=== PATIENT | female | born 1950 | race Caucasian/White ===

== ENCOUNTER 2018-05-22 11:12 | Emergency (ER) | payer MEDICARE, OTHER ==
--- NOTE | 2018-05-22 13:40 | CT ---
CT BRAIN WITHOUT CONTRAST: HISTORY: Left-sided facial droop. FINDINGS: No evidence of infarct, hemorrhage, midline shift, or abnormal extraaxial fluid collections is seen. The ventricular size is normal and the basilar cisterns patent. The bony calvarium is intact. Ther e is mild mucosal disease in the left ethmoid air cells. The remainder of the paranasal sinuses and mastoid air cells are clear. IMPRESSION: No CT evidence of acute intracranial process. POS: [facility]
== END 2018-05-22 15:10 | disposition home or self-care (01) ==
LOC: ERS 11:12
DX: G51.0 Bell's palsy (principal); E11.9 Type 2 diabetes mellitus without complications; F32.9 Major depressive disorder, single episode, unspecified; G31.09 Other frontotemporal neurocognitive disorder; F02.80 Dementia in other diseases classified elsewhere, unspecified severity, without behavioral disturbance, psychotic disturbance, mood disturbance, and anxiety; G40.909 Epilepsy, unspecified, not intractable, without status epilepticus; I10 Essential (primary) hypertension; Z79.82 Long term (current) use of aspirin; Z79.84 Long term (current) use of oral hypoglycemic drugs; Z79.899 Other long term (current) drug therapy
CPT/HCPCS: 70450

== ENCOUNTER 2019-05-21 08:15 | Outpatient (CLI) | payer MEDICARE ==
--- NOTE | 2019-05-21 09:00 | MMO ---
Bilateral MAMMO Bilat Screen [facility]. CLINICAL HISTORY: Patient is 68 years old and is seen for screening. The patient has no family history of breast cancer. The patient has no personal history of cancer. VIEWS: The views performed were: bilateral craniocaudal with tomosynthesis and bilateral mediolateral oblique with tomosynthesis. This study has been interpreted with the assistance of computer-aided detection. MAMMOGRAM FINDINGS: The breasts are heterogeneously dense, which could obscure a lesion on mammography. There are benign appearing and vascular calcifications seen in both breasts. There are no suspicious masses, suspicious calcifications, or new areas of architectural distortion. IMPRESSION: THERE IS NO MAMMOGRAPHIC EVIDENCE OF MALIGNANCY. A ROUTINE FOLLOW-UP MAMMOGRAM IN 1 YEAR IS RECOMMENDED. THE RESULTS OF THIS EXAM WERE SENT TO THE PATIENT. ACR BI-RADS Category 2 - Benign finding MAMMOGRAPHY NOTE: 1. A negative mammogram report should not delay a biopsy if a dominant of clinically suspicious mass is present. 2. Approximately 10% to 15% of breast cancers are not detected by mammography. 3. Adenosis and dense breasts may obscure an underlying neoplasm. Reported by: TAYLER CLARKE MD Electonically Signed: [id number]
== END 2019-05-21 08:16 | disposition home or self-care (01) ==
LOC: BICMAMMO 08:15
PROVIDERS: ATTEND Family Medicine
DX: Z12.31 Encounter for screening mammogram for malignant neoplasm of breast (principal)
CPT/HCPCS: 77063; 77067

== ENCOUNTER 2022-01-28 11:30 | Outpatient (CLI) | payer MEDICARE | END 2022-01-28 11:31 | disposition home or self-care (01) | LOC: BICMAMMO 11:30 | PROVIDERS: ATTEND Family Medicine | DX: Z12.31 Encounter for screening mammogram for malignant neoplasm of breast (principal) | CPT/HCPCS: 77063; 77067 ==

== ENCOUNTER 2022-07-09 13:11 | Emergency (ER) | payer MEDICARE ==
[2022-07-09 14:24] LABS: #Eosinphils 0.1 thou/uL (0.0-0.7); #Lymphocytes 1.5 thou/uL (1.20-3.40); #Monocytes 0.7 thou/uL (0.11-0.59); #Neutrophils 4.9 thou/uL (1.40-6.50); %Basophils 0.2 % (0.0-1.0); %Eosinophils 2.1 % (0.0-10.0); %Lymphocytes 20.4 % (21.0-51.0); %Monocytes 9.2 % (0.0-10.0); %Neutrophils 68.2 % (42.0-75.0); Hemoglobin 9.2 g/dL (12.0-16.0); Mean Corpuscular HGB CONC 30.5 g/dL (32.0-36.0); Mean Corpuscular Hemoglobin 25.7 pg (27.0-31.0); Mean Corpuscular Volume 84.3 fl (78.0-98.0); Mean Platelet Volume 8.9 fL (7.4-10.4); Platelet Count 216 10x3/uL (130-400); RBC Distribution Width 16.8 % (11.5-14.5); Red Blood Cell (RBC) Count 3.58 mill/uL (4.20-5.40); White Blood Cell (WBC) Count 7.2 10x3/uL (4.8-10.8)
[2022-07-09 14:48] LABS: ALT (SGPT) 12 U/L (8-55); AST (SGOT) 12 U/L (5-34); Albumin 3.6 g/dL (3.4-4.8); Alkaline Phosphatase 99 U/L (40-110); Anion Gap 13 mmol/L (10-20); BUN (Urea Nitrogen) 28 mg/dL (9.8-20.1); Bilirubin, Total 0.4 mg/dL (0.2-1.2); Calc. Creatinine Clearance 0 mL/min (70-130); Carbon Dioxide 25 mmol/L (23-31); Chloride 105 mmol/L (98-107); Estimated GFR 52; Globulin 3.1 g/dL (2.4-3.5); Glucose 166 mg/dL (83-110); Potassium 4.2 mmol/L (3.5-5.1); Protein, Total 6.7 g/dL (5.8-8.1); Sodium 139 mmol/L (136-145)
== END 2022-07-09 16:09 | disposition home or self-care (01) ==
LOC: ERS 13:11
DX: G40.909 Epilepsy, unspecified, not intractable, without status epilepticus (principal); E11.40 Type 2 diabetes mellitus with diabetic neuropathy, unspecified; Z79.84 Long term (current) use of oral hypoglycemic drugs; I10 Essential (primary) hypertension; Z79.899 Other long term (current) drug therapy
CPT/HCPCS: 36415; 71045; 80053; 80177; 84146; 84484; 85025; 93005